=== PATIENT | male | born 1940 | race Two or more races ===

== ENCOUNTER 2020-03-25 16:56 | Emergency (ER) | payer MEDICAID, MEDICARE ==
[~2020-03-25] VITALS: Ht 165.1 cm; Wt 52.0 kg
[2020-03-25 19:00] LABS: BASOPHILS % 0.5 % (0.0-2.0); EOSINOPHILS % 0.2 % (0.0-5.0); HEMATOCRIT. 44.4 % (42.0-52.0); HEMOGLOBIN. 14.8 g/dL (14.0-18.0); LYMPHOCYTES % 30.5 % (20.0-50.0); MEAN CORPUSCULAR HEMOGLOBIN 28.4 pg (28.0-32.0); MEAN PLATELET VOLUME 8.5 fl (7.4-10.4); MONOCYTES % 7.1 % (2.0-8.0); NEUTROPHILS % 61.7 % (40.0-76.0); PLATELET 239 x1000/uL (130-400); RED BLOOD CELL COUNT 5.23 mill/uL (4.7-6.1); RED CELL DISTRIBUTION WIDTH 13.5 % (11.6-14.6)
[2020-03-25 19:05] LABS: CHLORIDE 107 mEq/L (98-107)
[2020-03-25 20:16] VITALS: BP 174/79
== END 2020-03-25 20:18 | disposition home or self-care (01) ==
LOC: ER 16:56
DX: R10.9 Unspecified abdominal pain (principal); R11.2 Nausea with vomiting, unspecified; K21.9 Gastro-esophageal reflux disease without esophagitis
CPT/HCPCS: 36415; 71045; 80053; 83880; 84484; 85025; 93005; 99285

== ENCOUNTER 2023-11-15 23:33 | Emergency (ER) | payer MEDICARE, MEDICAID ==
[~2023-11-15] VITALS: Ht 165.1 cm; Wt 56.0 kg
[2023-11-15 23:42] VITALS: O2SAT 98
[2023-11-16] MEDS: ONDANSETRON HCL 4MG/2ML INJ IV STA (03:52)
[2023-11-16] MEDS: MECLIZINE 25MG TABLET PO ONE (03:52)
[2023-11-16] MEDS: MAGNESIUM/ALUMINUM HYDROXIDE/SIMETHICONE 30ML UDC PO ONE (03:52)
[2023-11-16 04:48] LABS: BASOPHILS % 0.5 % (0.0-2.0); EOSINOPHILS % 0.1 % (0.0-5.0); HEMATOCRIT. 42.2 % (42.0-52.0); HEMOGLOBIN. 13.9 g/dL (14.0-18.0); LYMPHOCYTES % 26.2 % (20.0-50.0); MEAN CORPUSCULAR HEMOGLOBIN 28.2 pg (28.0-32.0); MEAN CORPUSCULAR HGB CONC 32.8 g/dL (31.0-37.0); MEAN CORPUSCULAR VOLUME 85.9 fL (80.0-94.0); MEAN PLATELET VOLUME 9.3 fl (7.4-10.4); MONOCYTES % 5.6 % (2.0-8.0); NEUTROPHILS % 67.6 % (40.0-76.0); PLATELET 209 x1000/uL (130-400); RED BLOOD CELL COUNT 4.92 mill/uL (4.7-6.1); RED CELL DISTRIBUTION WIDTH 13.6 % (11.6-14.6); WHITE BLOOD COUNT 7.8 x1000/uL (4.5-11.0)
[2023-11-16 05:07] LABS: ALANINE AMINOTRANSFERASE 26 IU/L (10-49); ALBUMIN 4.8 g/dL (3.2-4.8); ASPARTATE AMINOTRANSFERASE 22 IU/L (<34); BILIRUBIN TOTAL 0.5 mg/dL (0.1-1.0); CALCIUM 9.3 mg/dL (8.7-10.4); CARBON DIOXIDE 26 mEq/L (21-32); CHLORIDE 108 mEq/L (98-107); CREATININE 0.8 mg/dL (0.6-1.3); GLUCOSE 111 mg/dL (70-105); POTASSIUM 4.4 mEq/L (3.5-5.1); PROTEIN TOTAL 7.9 g/dL (6.0-8.3); SODIUM 141 mEq/L (136-145); TROPONIN I HIGH SENSITIVITY 11 ng/L (3.0-53); UREA NITROGEN BLOOD 12 mg/dL (9-23)
[2023-11-16 05:13] LABS: ETHANOL BLOOD < 10 mg/dL (<10)
[2023-11-16 05:42] LABS: PARTIAL THROMBOPLASTIN TIME 25.5 sec (23.4-31.0); PROTHROMBIN TIME 10.9 sec (9.6-11.0)
[2023-11-16] MEDS ORDERED: MAG355OR21 MT (05:50)
[2023-11-16] MEDS ORDERED: MECL-299 MT (05:50)
[2023-11-16] MEDS ORDERED: ACET-2708 MT (05:50)
[2023-11-16] MEDS ORDERED: ONDA4TAB50 MT (05:50)
[2023-11-16 07:17] VITALS: BP 162/75; PULSE 68; RESP 18; TEMP 97.4
== END 2023-11-16 08:20 | disposition home or self-care (01) ==
LOC: ER 23:59
DX: R42 Dizziness and giddiness (principal); R10.13 Epigastric pain; K21.9 Gastro-esophageal reflux disease without esophagitis; Z79.899 Other long term (current) drug therapy
CPT/HCPCS: 99285; 80053; 80320; 83880; 83605; 83690; 85025; 85610; 85730; 84484; 36415; 71045; 70450; 74176; 93005; 96374; J8597; J2405; G0480

== ENCOUNTER 2025-03-11 10:50 | Emergency (ER) | payer BC, MEDICAID ==
[~2025-03-11] VITALS: Ht 165.1 cm; Wt 55.0 kg
[~2025-03-11 10:50] MED LIST: ACET-2708 MT; MAG355OR21 MT; MECL-299 MT; ONDA4TAB50 MT
[2025-03-11 10:52] VITALS: O2SAT 96
[2025-03-11] MEDS ORDERED: DOCUSATE SODIUM SUGAR FREE 100MG/10ML UDC NG ONE (11:30)
[2025-03-11] MEDS: NA PHOS,M-B/NA PHOS,DI-BA ENEMA 118ML PR ONE (11:30)
[2025-03-11 12:10] LABS: BASOPHILS % 0.5 % (0.0-2.0); EOSINOPHILS % 0.3 % (0.0-5.0); HEMATOCRIT. 40.1 % (42.0-52.0); HEMOGLOBIN. 13.1 g/dL (14.0-18.0); LYMPHOCYTES % 22.9 % (20.0-50.0); MEAN PLATELET VOLUME 8.9 fl (7.4-10.4); MONOCYTES % 7.9 % (2.0-8.0); NEUTROPHILS % 68.4 % (40.0-76.0); PLATELET 225 x1000/uL (130-400); RED BLOOD CELL COUNT 4.67 mill/uL (4.7-6.1); RED CELL DISTRIBUTION WIDTH 13.7 % (11.6-14.6)
[2025-03-11] MEDS: DOCUSATE SODIUM SUGAR FREE 100MG/10ML UDC NG NR (12:24)
[2025-03-11 12:25] LABS: CREATININE 0.9 mg/dL (0.6-1.3); INR 1.0
[2025-03-11] MEDS: SENNOSIDES/DOCUSATE SOD 8.6/50MG TABLET PO PRN (12:25)
[2025-03-11 12:26] LABS: TROPONIN I HIGH SENSITIVITY 4 ng/L (3.0-53); UREA NITROGEN BLOOD 16 mg/dL (9-23)
[2025-03-11 12:27] LABS: ASPARTATE AMINOTRANSFERASE 23 IU/L (<34)
[2025-03-11 12:28] LABS: BILIRUBIN DIRECT 0.2 mg/dL (<=3.0); BILIRUBIN TOTAL 0.6 mg/dL (0.1-1.0); PROTEIN TOTAL 7.3 g/dL (6.0-8.3)
[2025-03-11] MEDS: POLYETHYLENE GLYCOL 3350 (17GM) 1 DOSE PACK PO ONE (12:35)
[2025-03-11 13:38] LABS: CLARITY URINE CLEAR (CLEAR); COLOR URINE YELLOW (YELLOW); GLUCOSE URINE NEGATIVE (NEGATIVE); KETONES URINE NEGATIVE (NEGATIVE); LEUKOCYTE ESTERASE URINE NEGATIVE (NEGATIVE); NITRITE URINE NEGATIVE (NEGATIVE); OCCULT BLOOD URINE NEGATIVE (NEGATIVE); PH URINE 8.0 (4.5-8.0); PROTEIN URINE NEGATIVE (NEGATIVE); SPECIFIC GRAVITY URINE 1.004 (1.005-1.030); UROBILINOGEN URINE 0.2 E.U./dL (0.2-1.0)
[2025-03-11] MEDS ORDERED: DOCU-138 MT (14:33)
[2025-03-11] MEDS ORDERED: SENN-371 MT (14:33)
[2025-03-11] MEDS ORDERED: MECL-299 MT (14:33)
[2025-03-11 14:51] VITALS: BP 116/59; PULSE 77; RESP 15; TEMP 36.9; O2SAT 97
[2025-03-11] MEDS: MECLIZINE 25MG TABLET PO ONE (14:59)
== END 2025-03-11 15:23 | disposition home or self-care (01) ==
LOC: ER 10:50
DX: H81.10 Benign paroxysmal vertigo, unspecified ear (principal); K59.00 Constipation, unspecified; I10 Essential (primary) hypertension; R06.02 Shortness of breath; Z79.899 Other long term (current) drug therapy
CPT/HCPCS: 99285; 74176; 71045; 80076; 80048; 81003; 83880; 83605; 83690; 85025; 85610; 84484; 36415; 93005; J8597; A4606